=== PATIENT | female | born 1960 | race Caucasian/White ===

== ENCOUNTER 2024-05-14 09:14 | Outpatient (CLI) | payer MEDICAID | END 2024-05-14 23:59 | disposition home or self-care (01) | LOC: RAD 09:14 | PROVIDERS: ATTEND General Practice | DX: M25.552 Pain in left hip (principal); M25.551 Pain in right hip; M51.37 Other intervertebral disc degeneration, lumbosacral region; M43.16 Spondylolisthesis, lumbar region; M54.89 Other dorsalgia | CPT/HCPCS: 72110; 72190; 73521 ==